=== PATIENT | female | born 1930 | race Caucasian/White ===

== ENCOUNTER 2016-12-31 14:03 | Inpatient (IN) | payer MEDICARE, OTHER ==
[~2016-12-31] VITALS: Ht 160 cm; Wt 53.5 kg
[~2016-12-31 14:03] MED LIST: AMITRIPTYLINE H50 MG PO; AUGMENTIN250 MG/5 M PO; CEPHALEXIN500 MG PO; CIPRO250 MG PO; CLONIDINE HCL0.1 MG PO; DILTIAZEM 24HR240 M1 PO; DILTIAZEM 24HR300 MG PO; DILTIAZEM ER180 MG PO; DILTIAZEM ER240 M2 PO; DILTIAZEM ER240 MG PO; DILTIAZEM HCL120 MG PO; ELIQUIS2.5 MG PO; FLUCONAZOLE100 MG PO; FUROSEMIDE20 MG PO; HYDROCHLOROTH12.5 M1 PO; HYDROCODON-ACE1 EA11 PO; HYDROCODONE-ACE15 M2 PO; INDERAL LA120 MG PO; LASIX20 MG PO; LEVAQUIN750 MG PO; LEVOTHYROXINE100 MCG PO; LEVOXYL112 MCG PO; LISINOPRIL20 MG PO; MACROBID 100 M100 MG PO; MIRALAX17 GM PO; NEURONTIN100 MG PO; NORCO 5-325 TA1 EACH PO; NUCYNTA ER50 MG PO; OMEPRAZOLE20 MG PO; OXYCODONE HCL20 M1 PO; OXYCODONE HCL5 MG PO; PERCOCET 5-3251 EACH PO; POTASSIUM CHLO10 MEQ PO; PROMETHAZINE12.5 M1 PO; PROPRANOLOL HC120 MG PO; PROPRANOLOL HCL20 MG PO; SENNA8.6 MG PO; VITAMIN D32000 UNIT PO; XARELTO10 MG PO; XARELTO20 MG PO
[2016-12-31] MEDS ORDERED: SERTRALINE HCL50 MG PO (14:28)
[2016-12-31] MEDS ORDERED: CARTIA XT240 MG PO (14:28)
--- NOTE | 2016-12-31 16:47 | NUR ---
PT TO FLOOR AT 1630. PT DROWSY AND STATES SHE HAS BEEN MOST OF THE DAY, WHICH IS NOT NORMAL FOR HER. GIVEN OXYCODONE AT THE FACILITY FOR HER CHRONIC PAIN. STATES SHE HURTS ALL OVER MOST OF THE TIME, BUT DENIES RIGHT NOW.
--- NOTE | 2016-12-31 17:18 | NUR ---
PT ED ADMIT THIS AFTERNOON. PT DROWSY ALL DAY AFTER OXYCODONE AT FACILITY. PRIOR RIGHT WRIST FRACTURE, BE CAREFUL. DENIES PAIN.
--- NOTE | 2016-12-31 19:37 | NUR ---
RECEIVED REPORT FROM DAY SHIFT RN. PATIENT IS RESTING IN BED WITH EYES CLOSED. PATIENT IS EASY TO AROUSE. PATIENT DENIES ANY PAIN AT THIS TIME. PATIENT DENIES ANY NEEDS. CALL LIGHT IS WITHIN REACH AND BED ALARM IS ON FOR SAFETY.
--- NOTE | 2016-12-31 21:55 | NUR ---
PATIENT ASSESMENT COMPLETED. PATIENT DENIES ANY PAIN AT THIS TIME. PATIENTS EVENING GIVEN MEDICATIONS GIVEN PER ORDER. PATIENTS ATTEND CHANGED AND MARIANNA CARE PERFORMED. PATIENT TOLERATED ACTIVITY WELL. PATIENT DENIES ANY FURTHER NEEDS. BED ALARM IS ON AND CALL LIGHT IS WITHIN REACH.
--- NOTE | 2016-12-31 22:59 | NUR ---
PATIENT GIVEN PRN TYLENOL FOR 5/10 PAIN THAT IS GENERALIZED. PATIENT DENIES ANY FURTHER NEEDS AT THIS TIME. CALL LIGHT IS WITHIN REACH AND BED ALARM IS ON.
--- NOTE | 2017-01-01 01:37 | NUR ---
PATIENTS VITALS TAKEN AND RECORDED. PATIENT DENIES ANY PAIN AT THIS TIME. PATIENTS ATTEND CHANGED. PATIENT DENIES ANY NEEDS AT THIS TIME. CALL LIGHT IS WITHIN REACH.
--- NOTE | 2017-01-01 03:24 | NUR ---
PATIENT IS RESTING IN BED WITH EYES CLOSED. PATIENTS BREATHING IS EVEN AND UNLABORED. PATIENT REMAINS ON TELE #1, NSR, HR 66. CALL LIGHT IS WITHIN REACH.
--- NOTE | 2017-01-01 03:32 | NUR ---
PATIENT IS RESTING IN BED WITH EYES CLSOED. BREATHING IS EVEN ADN UNLABORED. CALL LIGHT IS WITHIN REACH AND BED ALARM IS ON.
--- NOTE | 2017-01-01 04:46 | NUR ---
PATIENT RESTED WELL THROUGHOUT THE SHIFT. PATIENT RECEIVED PRN TYLENOL FOR A HEADACHE. PATIENT IS AAO BUT FORGETFUL AT TIMES. PATIENT IS ON A CLEAR DIET BUT HAS A DECREASE IN APPETITE. PATIENT STATES "I AM JUST NOT HUNGRY" PATIJOSEPHN IS WHEELCHAIR BOUND AT BASELINE. PATIENT IS INCONTINENT. PATIENT HAS A RIGHT WRIST FRACTURE. PATIENTS SON WILL BE BRINGING IN BRACE TODAY FOR PATIENTS WRIST. PATIENTS BED ALARM HAS REMAINED ON FOR PATIENT SAFETY.
--- NOTE | 2017-01-01 05:40 | NUR ---
PATIENTS VITALS TAKEN AND RECORDED. PATIENT DENIES ANY PAIN AT THIS TIME. PATIENTS ATTEND CHANGED AND MARIANNA CARE PERFORMED. PATIENT GIVEN A WARM BLANKET. PATIENT DENIES ANY NEEDS. WARM BLANKET GIVEN. BED ALARM ON AND CALL LIGHT IS WITHIN REACH.
--- NOTE | 2017-01-01 06:33 | NUR ---
PATIENTS ATTEND CHANGED MARIANNA CARE PERFORMED. PRN TYELNOL GIVEN FOR 5/10 GENERALIZED PAIN. PATIENT DENIES ANY FURTHER NEEDS. BED ALARM IS ON AND CALL LIGHT IN REACH.
--- NOTE | 2017-01-01 07:15 | NUR ---
REPORT RECIEVED FROM ARCADIO VEGA. PT AWAKE AND STATES SHE SLEPT OK LAST NIGHT. STATED THAT SHE FELT OK. TOOK TYLENOL FOR HEADACHE X1.
--- NOTE | 2017-01-01 07:47 | NUR ---
ADMINISTERED SCHED. MEDS. PT NOW STATES SHE IS IN HORRIBLE ALL OVER PAIN. STATES SHE NORMALLY TAKES OXYCODONE AT HOME FOR CHRONIC PAIN. WILL TALK TO
--- NOTE | 2017-01-01 08:00 | NUR ---
gave patient full bed bath. lotion applyed. depends changed with héctor care done. Patient turned onto left side. oral care done. patient sitting up in bed with breakfast tray in front of her. patient has no other needs at this time. call button in reach.
--- NOTE | 2017-01-01 09:18 | NUR ---
TALKED TO DR. CH REGARDING NEED FOR STOOL SOFTENERS. SHE ORDERED COLACE. WILL ADMINISTER WHEN VERIFIED.
--- NOTE | 2017-01-01 10:22 | NUR ---
PT REPORTS FEELING MUCH BETTER AFTER PAIN MEDS KICKED IN. NOW AWAKE AND TALKATIVE. DENIES CONCERNS. ADMINSTERED COLACE. PT ABLE TO SWALLOW WO DIFF.
[2017-01-01] MEDS ORDERED: ZOFRAN4 MG PO (10:23)
--- NOTE | 2017-01-01 10:23 | NUR ---
MED REC COMPLETE-PER PATIENT
--- NOTE | 2017-01-01 10:38 | NUR ---
CHANGED PATIENTS DEPENDS. TURNED PATIENT TO RIGHT SIDE. CALL BUTTON IN REACH. NO OTHER NEEDS AT THIS TIME.
--- NOTE | 2017-01-01 11:32 | NUR ---
PT RESTING IN BED.SHE IS AN 86 YR OLD FEMALE THAT IS VERY ARTICULATE AND POLITE. SHE STATED THAT SHE SLEPT WELL LAST NIGHT, BUT STILL ISN'T FEELING MUCH BETTER. DECLINED PRAYER, STATED "I AM VERY PRIVATE ABOUT MY PRAYING". I EXTENDED A BLESSING AND SHE THANKED ME. WILL CONTINUE TO FOLLOW
--- NOTE | 2017-01-01 12:20 | NUR ---
CHANGED IV TO OTHER ARM AND IN THE FOREARM, NOT THE AC. PT TOLERATED WELL AND WAS HAPPY TO NOT HAVE IT BEEPING AT HER CONTINUALLY. SON IN ROOM VISITING. REPORTS PAIN LOW.
--- NOTE | 2017-01-01 14:20 | NUR ---
PATIENT LAYING IN BED WATCHING TV. REQUESTED A MILK SHAKE. NO OTHER NEEDS AT THIS TIME.
--- NOTE | 2017-01-01 14:20 | NUR ---
PT HAD EXTREMELY LARGE HARD FORMED STOOL IN BEDPAN. STATES SHE FEELS MUCH BETTER. DENIES FURTHER CONCERNS.
--- NOTE | 2017-01-01 14:36 | NUR ---
PT CALLED FOR PAIN MEDICATION. RATES IT 01/23
--- NOTE | 2017-01-01 15:38 | NUR ---
patient depends dry. turned her to the left side with feet floating. bed down alarm on. call button in reach. no other needs at this time.
--- NOTE | 2017-01-01 17:27 | NUR ---
PT HAD A BETTER DAY. HOME REGIMN OF OXY STARTED. HAD VERY LARGE BM AFTER COLACE. CHANGED DEPENDS SEVERAL TIMES. IV CHANGED TO LEFT WRIST, PER REQUEST.
--- NOTE | 2017-01-01 17:58 | NUR ---
PT ATE A SMALL AMT OF DINNER AND MOST OF HIS ENSURE SHAKE. STATES SHE DOES NOT HAVE AN APPETITE LATELY. REPORTS PAIN IS MINIMAL RIGHT NOW.
--- NOTE | 2017-01-01 18:17 | NUR ---
CHANGED PATIENTS ATTENDS. SKIN CARE DONE. FRESH ICE WATER GIVEN. PATIENT RESTING IN BED WITH EYES CLOSED. CALL BUTTON IN REACH. BED ALARM ON.
--- NOTE | 2017-01-01 19:53 | NUR ---
RECEIVED REPORT FROM DAY SHIFT RN. PATIENT IS RESTING IN BED WATCHING TV. PATIENT IS REQUESTING PAIN MEDICATION WITH HER EVENING MEDICATIONS. COOPER ALARM IS ON FOR SAFETY AND CALL LIGHT IS WITHNI REACH.
--- NOTE | 2017-01-01 21:38 | NUR ---
PATIENT GIVEN PRN PAIN MEDICATION FOR 6/10 PAIN IN HER BACK. PATIENT ALSO GIVEN A WARM PACK FOR HER BACK. PATIENTS ATTEND CHANGED AN [facility] CARE PERFOMED. PATIENT REPOSTIIONED IN BED. PATIENTS WATER REFILLED. PATIENT DENIES ANY FURTHER NEEDS AT THIS TIME. PATIENT IS AAOX3, BUT IS FORGETFUL AT TIMES. PATIENTS BED ALARM IS ON FOR SAFETY. CALL LIGHT IS WITHIN REACH.
--- NOTE | 2017-01-01 23:39 | NUR ---
PATIENT COMPLAINS OF DISCOMFORT. PATIENT REPOSTIONED AND GIVEN A WARM BLANKET. PATIENT GIVEN PRN PAIN MEDICATION FOR 7/10 GENERALIZED PAIN. PATIENT DENIES ANY FURTHER NEEDS AT THIS TIME. CALL LIGHT IS WITHIN REACH.
--- NOTE | 2017-01-02 02:09 | NUR ---
PATIENTS ATTEND CHANGED AND MARIANNA CARE PERFOMRED. PATIENT IS REQUESTING PAIN MEDICATION. EDUCATED PATIENT THAT PAIN MEDICATION WAS NOT AVAILABLE UNTIL 0300. PATIENT IS REQUESTING THAT PAIN MEDICATION BE BROUGHT IN AT THIS TIME. PATIENT REPOSITIONED IN BED. PATIENT DENIES ANY FURTHER NEEDS. BED ALARM IS ON AND CALL LIGHT IN REACH.
--- NOTE | 2017-01-02 03:14 | NUR ---
PATIENT GIVEN PRN PAIN MEDICATION PER ORDER. PATIENT COMPLAINS IF 7/10 PAIN. PATIENT STATES "I JUST HURT ALL OVER" PATIENT DENIES ANY FURTHER NEEDS. CALL LIGHT IN REACH.
--- NOTE | 2017-01-02 04:44 | NUR ---
PATIENT IS RESTING IN BED WITH EYES CLOSED, RR 17
--- NOTE | 2017-01-02 04:52 | NUR ---
PATIENT RESTED ON AND OFF THROUGHOUT THE SHIFT. PATIENTIS ON A REG DIET AND TOLERATING INTAKE WELL. PATIENT RECEIVED PRN PAIN MEDICATION X3. PATIENT IS WHEELCHAIR BOUND AT BASELINE. PATIENT IS INCONTINENT, ATTEND IN PLACE. PATIENT IS AAOX3, BUT IS FORGETFUL AT TIMES. PATIENTS BED ALARM IS ON FOR SAFETY. PATIENT USES CALL LIGHT APPROPRIATELY. PATIENT DOES NOT CURRENTLY HAVE BOTTOM DENTURES THEREFORE A SOFT DIET IS REQUESTED BY PATIENT. PATIENT WEARS A WRIST BRACE ON HER RIGHT WRIST, BRACE IS NOT CURRENTLY WITH PATIENT.
--- NOTE | 2017-01-02 06:07 | NUR ---
PATIENTS VITALS TAKEN AND RECORDED. PATIENTS ATTEND CHANGED AND MARIANNA CARE PERFORMED. PATIENT IS REQUESTING PAIN MEDICATION. EDUCATED PATIENT THAT PAIN MEDICATION IS NOT AVAILABLE. PATIENT IS REQUESTING THAT PAIN MEDICATION BE BROUGHT IN WHEN AVAILABLE. PATIENT DENIES ANY FURTHER NEEDS. CALL LIGHT IS WITHIN REACH.
--- NOTE | 2017-01-02 06:49 | NUR ---
PATIENT GIVEN PRN PAIN MEDICATION PER ORDER. FOR 7/10 BACK PAIN. PATIENT REPOSITIONED. PATIENT DENIES ANY FURTHER NEEDS. CALL LIGHT IS WITHIN REACH.
[2017-01-02] MEDS ORDERED: CEPHALEXIN250 MG PO (09:31)
--- NOTE | 2017-01-02 09:33 | NUR ---
PT AWAKE AND PARTICIPATORY AT SHIFT CHANGE. REFUSES UP TO THE CHAIR STATING SHE WOULD BE MORE COMFORTABLE IN BED. PT TOLERATES A SMALL AMOUNT OF HER BREAKFAST REFUSING OTHER CHOICES OFFERED. PT AGREES THE PAIN MEDS HAVE BEEN EFFECTIVE " THEY CAN BE" REFUSES OTHER NEEDS AT THIS TIME. CALL LIGHT IN HAND
--- NOTE | 2017-01-02 10:33 | NUR ---
DR CH IN TO SEE PT DC DISCUSSSED. PT DENIES QUESTIONS OR CONCERNS.
== END 2017-01-02 10:45 | disposition home or self-care (01) | DRG 689 ==
LOC: ED 14:03 → MS 15:54
PROVIDERS: ADMIT Internal Medicine
DX: N39.0 Urinary tract infection, site not specified (principal); G93.41 Metabolic encephalopathy; R65.10 Systemic inflammatory response syndrome (SIRS) of non-infectious origin without acute organ dysfunction; I48.1 Persistent atrial fibrillation; M19.90 Unspecified osteoarthritis, unspecified site; J44.9 Chronic obstructive pulmonary disease, unspecified; E03.9 Hypothyroidism, unspecified; I11.0 Hypertensive heart disease with heart failure; I50.9 Heart failure, unspecified; F17.210 Nicotine dependence, cigarettes, uncomplicated
CPT/HCPCS: 36415; 71010; 80048; 80053; 81001; 83605; 83735; 85025; 87040; 87088; J0696; J3475; J3480; J7030; J7042; J7060

== ENCOUNTER 2017-01-25 15:21 | Emergency (ER) | payer MEDICARE, OTHER ==
[~2017-01-25] VITALS: Ht 160 cm; Wt 53.5 kg
[~2017-01-25 15:21] MED LIST changes: +CARTIA XT240 MG PO; +CEPHALEXIN250 MG PO; +SERTRALINE HCL50 MG PO; +ZOFRAN4 MG PO
--- NOTE | 2017-01-25 17:13 | EKG ---
[facility] [address] [place] [address] Signed Normal sinus rhythm Normal ECG When compared with ECG of 08-APR-2016 17:10, No significant change was found Confirmed by HERNANDO CH MD ([id number]) on 01/25/2017 5:13:35 PM Electronically Signed By: HERNANDO CH MD 01/25/17 1713 PATIENT NAME: MATEOYOELOLIVER Electrocardiogram DATE OF : [birth year] PHYSICIAN: HERNANDO CH MD REPORT #: [id number] REPORT IS CONFIDENTIAL AND NOT TO BE RELEASED WITHOUT AUTHORIZATION
[2017-01-25] MEDS ORDERED: AZITHROMYCIN250 MG PO (18:35)
== END 2017-01-25 19:12 | disposition home or self-care (01) ==
LOC: ED 15:21
DX: J44.9 Chronic obstructive pulmonary disease, unspecified (principal); R53.1 Weakness; I11.0 Hypertensive heart disease with heart failure; I50.9 Heart failure, unspecified; I48.91 Unspecified atrial fibrillation; E03.9 Hypothyroidism, unspecified; F17.200 Nicotine dependence, unspecified, uncomplicated; Z87.442 Personal history of urinary calculi; Z90.49 Acquired absence of other specified parts of digestive tract; Z90.710 Acquired absence of both cervix and uterus; Z79.899 Other long term (current) drug therapy; Z79.891 Long term (current) use of opiate analgesic
CPT/HCPCS: 71010; 80053; 81001; 84484; 85025; 93005; 93010; 99284

== ENCOUNTER 2017-08-25 02:42 | Emergency (ER) | payer MEDICARE, OTHER ==
[~2017-08-25] VITALS: Ht 160 cm; Wt 53.5 kg
[~2017-08-25 02:42] MED LIST changes: +AZITHROMYCIN250 MG PO; +OXYCODONE HCL10 MG PO; +ZOFRAN ODT4 MG PO; -ZOFRAN4 MG PO
[2017-08-25] MEDS ORDERED: OMEPRAZOLE20 MG PO (02:53)
[2017-08-25] MEDS ORDERED: ZOFRAN ODT4 MG PO (05:17)
== END 2017-08-25 05:40 | disposition home or self-care (01) ==
LOC: ED 02:42
DX: K29.00 Acute gastritis without bleeding (principal); J44.9 Chronic obstructive pulmonary disease, unspecified; I11.0 Hypertensive heart disease with heart failure; I50.9 Heart failure, unspecified; I48.91 Unspecified atrial fibrillation; E03.9 Hypothyroidism, unspecified; F17.200 Nicotine dependence, unspecified, uncomplicated; Z79.899 Other long term (current) drug therapy
CPT/HCPCS: 74176; 80053; 81001; 83690; 84484; 85025; 87077; 87088; 87181; 87184; 87186; 96374; 99284; J2405; J7040

== ENCOUNTER 2017-11-10 16:22 | Inpatient (IN) | payer MEDICARE, OTHER ==
[~2017-11-10] VITALS: Ht 160 cm; Wt 46.5 kg
[2017-11-10] MEDS ORDERED: LEVOTHYROXINE88 MCG PO (16:45)
[2017-11-10] MEDS ORDERED: TROSPIUM CHLORI60 MG PO (16:46)
--- NOTE | 2017-11-10 19:29 | NUR ---
PT ARRIVED VIA STRETCHER FROM THE ED, SHE IS CONFUSED PUT KNOWS WHERE SHE IS AND HER NAME. PT STATES SHE HAS PAIN IN HER BACK BUT CANNOT GIVE IT A NUMBER. SHE IS DROWSY BUT ARROUSABLE. HER SON AND ANOTHER FAMILY MEMBER ARE WITH HER AT THIS TIME. FRESH WATER AT BEDSIDE AND CHAPSTICK APPLIED.
--- NOTE | 2017-11-10 20:30 | NUR ---
CALLED DR BLAKE ABOUT PT'S BP OF 205/89. HE SAID GO AHEAD AND GIVE THE BOULS OF FLUID ORDERED AND THE ZESTIRIL AND RECHECK IN AN HOUR.
--- NOTE | 2017-11-10 20:58 | NUR ---
ADMINISTERED LISINOPRIL IN APPLESAUCE, PT STATES "JUST LET ME " AND "I CANNOT SWALLOW" SHE WAS ABLE TO TAKE THE LISINOPRIL BUT DENIES THE TYLENOL.
--- NOTE | 2017-11-10 21:30 | NUR ---
BLANTON CATHETER PLACED PER MD ORDER. IMMEDIATE RETURN OF 500 ML CLOUDY YELLOW URINE. NO ODOR NOTED. PT REPEATING, "LET ME ", "I'M DYING". REASSURANCE PROVIDED. PT TOLERATED BLANTON CATH PLACEMENT WELL. PT REPOSITIONED IN BED. DENIES OTHER NEEDS AT THIS TIME. CALL LIGHT WITHIN REACH, ROOM WITHIN VIEW OF NURSES STATION.
--- NOTE | 2017-11-10 22:00 | NUR ---
SPOKE WITH DR BLAKE ABOUT PT'S BP OF 209/78, HE WILL PUT IN NEW ORDERS.
--- NOTE | 2017-11-10 23:35 | NUR ---
PT IS RESTING WITH EYES CLOSED, RESPIRATIONS ARE EVEN AND NONLABORED. CALL LIGHT IS WITHIN REACH.
--- NOTE | 2017-11-11 01:11 | NUR ---
PT IS RESTING WITH EYES CLOSED, RESPIRATIONS ARE EVEN AND NONLABORED. CALL LIGHT IS WITHIN REACH.
--- NOTE | 2017-11-11 02:23 | NUR ---
PT IS AWAKE IN BED, WHEN ASKED HOW SHE IS DOING SHE STATES "I AM " WE REPOSITIONED HER IN BED AND "SHE SAID DON'T BOTHER I AM ". YET SHE CAN STATE HER NAME AND 'S NAME.
--- NOTE | 2017-11-11 02:47 | NUR ---
ARCADIO HATHAWAY AND I REPOSITIONED THE PATIENT LYING ON HER LEFT SIDE.
--- NOTE | 2017-11-11 02:47 | NUR ---
NOTIFIED DR BLAKE OF PT'S BP 194/81 HE SAID TO INCREASE PT'S LABETALOL FROM 10MG TO 20 MG Q6H. WILL CHANGE THE ORDER.
--- NOTE | 2017-11-11 03:20 | NUR ---
PT IS RESTING WITH EYES CLOSED, RESPIRTATIONS ARE EVEN AND NONLABORED. CALL LIGHT IS WITHIN REACH.
--- NOTE | 2017-11-11 05:15 | NUR ---
PT IS RESTING WITH EYES CLOSED, RESPIRATIONS ARE EVEN AND NONLABORED. CALL LIGHT IS WITHIN REACH.
--- NOTE | 2017-11-11 05:37 | NUR ---
PT IS ORIENTED TO SELF AND LOCATION HOWEVER SHE CANNOT STATE THE DATE AND SAYS ODD THINGS AT TIMES. SHE SLEPT MOST OF THE NIGHT. HER BP WAS HIGH AND LABETALOL WAS ADDED BY DR BLAKE AT 10MG. AFTER IT REMAINED TERRELL THE DOSE WAS INCREASED TO 20MG. PT STATES SHE HAS A DIFFICULT TIME SWALLOWING, ORDERED ST EVAL. PT HAD A SMALL AMOUNT OF APPLESAUCE LAST NIGHT, AND TOOK ZESTIRIL CRUSHED IN THE APPLESAUCE. SHE USES A WHEELCHAIR AND LIVES AT [facility]. BLANTON CATH WAS PLACED FOR STRICT I&OS.
--- NOTE | 2017-11-11 06:25 | NUR ---
IN ROOM TO ADMINISTER MORNING MEDICATIONS. PT STATES HER PAIN IS 10/10 IN HER FEET. HAD TO CRUSH HER TYLENOL AND THYROID MEDICINE AND PUT IN APPLESAUCE. SHE DID NOT LIKE THE FLAVOR AND ALMOST VOMITED. SHE DECLINED TAKING THE PROTONIX AT THIS TIME. SHE IS A&O X3 THIS MORNING BUT STATES SHE FEELS CONFUSED. PT DENIES FURTHER NEEDS AT THIS TIME. FRESH WATER IS AT BEDSIDE.
--- NOTE | 2017-11-11 08:38 | NUR ---
SPEECH THERAPY WORKING WITH PATIENT NOW. OCCUPATIONAL THERAPIST IN TO SEE PATIENT WELL. ALLOWING THERAPY STAFF TO WORK WITH PATIENT BEFORE ADMINISTERING MORNING MEDICATIONS.
--- NOTE | 2017-11-11 08:40 | NUR ---
SPEECH THERAPY SUGGESTS A GROUND DIET AND CRUSHING PILLS WITH FOOD TO ADMINISTER.
--- NOTE | 2017-11-11 09:06 | NUR ---
SUSAN ERVIN ATTEMPTING NEW IV START. FIELD START IN PLACE NOW. SON ARRIVED TO ROOM. PATIENT REPEATING STATEMENTS THAT SHE IS GOING TO . REORIENTED PATIENT FREQUENTLY. TOOK CRUSHED MEDICATIONS WITH APPLESAUCE.
--- NOTE | 2017-11-11 09:47 | NUR ---
PATIENT TRANSFERRED TO CHAIR 2PA WITH WALKER AND GAIT BELT. IN RECLINER NOW.
--- NOTE | 2017-11-11 10:24 | NUR ---
NOTIFIED OF SPEECH THERAPY EVALUATION, GROUND FOODS AND CRUSHED MEDICATIONS.
--- NOTE | 2017-11-11 11:59 | NUR ---
ADMINISTERED MEDICATION WITH APPLESAUCE, PATIENT ABLE TO SWALLOW PILLS WELL. PATIENT REQUESTED SALT PACKET FOR LUNCH, DR. HAYDEN PONCE. PROVIDED PATIENT SALT. IV FLUIDS DECREASED TO 65ML/HR.
--- NOTE | 2017-11-11 14:15 | NUR ---
NAILER OPERATOR FROM [facility] VISITING WITH PATIENT NOW. PATIENT SITTING UP IN RECLINER. CATHETER REMOVED AT 1330. 50ML URINE EMPTIED FROM CATHETER BAG. PATIENT TOLERATED REMOVAL WELL. NOTIFIED HOSPITALIST OF LOW URINE OUTPUT.
--- NOTE | 2017-11-11 16:06 | EKG ---
[facility] [address] [place] [address] Signed Normal sinus rhythm Possible Anterior infarct , age undetermined Abnormal ECG When compared with ECG of 25-JAN-2017 15:47, Non-specific change in ST segment in Anterior leads T wave inversion now evident in Anterior leads QT has lengthened Confirmed by AMY BLAKE MD ([id number]) on 11/11/2017 4:06:38 PM Electronically Signed By: AMY BLAKE MD 11/11/17 1606 PATIENT NAME: PRIYAOLIVERDEMARCUS GOMEZ Electrocardiogram DATE OF : [birth year] PHYSICIAN: AMY BLAKE MD REPORT #: [id number] REPORT IS CONFIDENTIAL AND NOT TO BE RELEASED WITHOUT AUTHORIZATION
--- NOTE | 2017-11-11 16:23 | NUR ---
[facility]. SITTING UP IN BED NOW. DIFFICULTY SWALLOWING SMALL CHUNKS OF CRUSHED MEDS. ATTEMPTING TO SWALLOW WITH MULTIPLE BITES OF APPLESAUCE AND ENSURE CLEAR DRINK.
[2017-11-11] MEDS ORDERED: SENNA8.6 MG PO (17:55)
[2017-11-11] MEDS ORDERED: TRIPLE ANTIBIO1 EACH TOP (17:57)
[2017-11-11] MEDS ORDERED: HIBICLENS118 ML TOP (17:59)
[2017-11-11] MEDS ORDERED: TYLENOL325 MG PO (18:01)
[2017-11-11] MEDS ORDERED: CLONIDINE HCL0.1 MG PO ×2 (18:02→18:03)
[2017-11-11] MEDS ORDERED: NARCAN4 MG NAS (18:05)
--- NOTE | 2017-11-11 18:07 | NUR ---
MED REC COMPLETE
--- NOTE | 2017-11-11 18:19 | NUR ---
2PA UP TO BSC. PATIENT HAD INCONTINENT VOID IN ATTENDS. ATTENDS CHANGED AND BACK TO BED NOW. ARRANGED FOR COMFORT. CALL LIGHT AND BELONGINGS WITHIN REACH.
--- NOTE | 2017-11-11 18:20 | NUR ---
BLANTON CATHETER REMOVED TODAY. INCONTINENT VOID IN ATTENDS AFTER REMOVED. NEW IV IN RFA. PT/OT/ST SAW HER TODAY. CARDIAC GROUND DIET. D5LR @ 75. LABETOLOL BID FOR BP. UNKNOWN LAST BM. CONFUSED AT TIMES. IMPROVING THROUGHOUT DAY. CRUSH PILLS IN APPLESAUCE. LEFT FACIAL DROOP. OXYCODONEAT 1800 FOR LEG PAIN. 2PA WITH GAIT BELT TO TRANSFER TO CHAIR TO [facility].
--- NOTE | 2017-11-11 19:04 | NUR ---
IN ROOM FOR REPORT, PT IS AWAKE IN BED, SHE DENIES NEEDS AT THIS TIME. CALL LIGHT IS WITHIN REACH.
--- NOTE | 2017-11-11 20:15 | NUR ---
ROUNDED CHARGE. PATIENT IS RESTING IN BED WATCHING TV. PATIENT DENIES ANY COMMENTS, QUESTIONS, OR CONCERNS. NO NEEDS NOTED. CALL LIGHT IN REACH.
--- NOTE | 2017-11-11 20:56 | NUR ---
IN ROOM TO ADMINISTER EVENING MEDICATIONS AND ASSESS PT. SHE IS ALERT AND ORIENTED X3 AND BUT SHE STATES SHE STILL FEELS A LITTLE CONFUSED. SHE ALSO STATES SHE DID NOT HAVE INCONTINENCE PRIOR TO ADMISSION. SHE TOOK HER EVENING PILLS CRUSHED IN CHOCOLATE PUDDING WITHOUT ANY PROBLEMS. TYLENOL WAS ADMINISTERED FOR A HEADACHE, PT DENIES FURTHER SYMPTOMS JUST BACK PAIN. CALL LIGHT IS WITHIN REACH AND PT DENIES NEEDS AT THIS TIME.
--- NOTE | 2017-11-11 21:50 | NUR ---
CALLED DR BLAKE TO NOTIFY HIM THAT PT'S BP WAS 187/81 AND EVENING BP MEDS WERE GIVEN ALONG WITH TYLENOL FOR 8/10 HEADACHE AND THAT BP WAS RECHECKED AT 136/63 AND PT RATES HEADACHE AT A 6/10. HE SAID CONTINIUE TO MONITOR FOR ANY OTHER SYMPTOMS. NO NEW ORDERS GIVEN.
--- NOTE | 2017-11-11 23:18 | NUR ---
CHANGED PT'S ATTENDS AND REPOSITIONED HER, SHE WILL TRY TO GO BACK TO SLEEP. CALL LIGHT IS WITHIN REACH.
--- NOTE | 2017-11-12 00:43 | NUR ---
PT IS RESTING WITH EYES CLOSED, RESPIRATIONS ARE EVEN AND NONLABORED. CALL LIGHT IS WITHIN REACH.
--- NOTE | 2017-11-12 02:39 | NUR ---
ADMINISTERED OXYCODONE FOR PAIN IN LEGS 01/23. SHE STATES HER HEADACHE IS ALMOST GONE. PT DENIES FURTHER NEEDS. CALL LIGHT IS WITHIN REACH.
--- NOTE | 2017-11-12 02:40 | NUR ---
CHANGED PT'S ATTENDS AND REPOSTIONED HER TO HELP WITH LEG PAIN. SHE DENIES FURTHER NEEDS.
--- NOTE | 2017-11-12 04:41 | NUR ---
PT IS RESTING WITH EYES CLOSED, RESPIRATIONS ARE EVEN AND NONLABORED. CALL LIGHT IS WITHIN REACH.
--- NOTE | 2017-11-12 04:43 | NUR ---
PT DID NOT SLEEP VERY WELL DURING THE NIGHT. SHE HAD SEVERAL INCONTINENT VOIDS IN HER ATTENDS AND STATES SHE CANNOT TELL WHEN SHE NEEDS TO GO. SHE THINKS HER LAST BM WAS THE BUT CANNOT RECALL IF SHE TAKES ANYTHING AT HOME TO HELP HER GO. PT PREFERS HER PILLS CRUSHED AND ADDED TO CHOCOLATE PUDDING. PT REPORTED A HEADACHE LAST NIGHT AT 8/10 BUT IT IMPROVED WITH TYLENOL. LAST DOSE OF OXYCODONE WAS ABOUT 0240. D5LR IS INFUSING AT 75.
--- NOTE | 2017-11-12 05:30 | NUR ---
CHANGED PT'S ATTENDS AND REPOSITIONED HER. SHE DENIES FURTHER NEEDS AT THIS TIME.
--- NOTE | 2017-11-12 06:32 | NUR ---
IN ROOM TO ADMINISTER MEDICATIONS. PT IS AWAKE IN BED, HELPED HER REPOSITION. SHE DENIES FURTHER NEEDS AT THIS TIME.
--- NOTE | 2017-11-12 07:59 | NUR ---
RN IN ROOM WITH PATIENT. PATIENT WASHED HANDS AND FACE WITH WARM WASH CLOTH, SHO WHIPPLE STATES SHE HELPED PATIENT CLEAN HER DENTURES. PATIENT WAITING FOR SWALLOW STUDY. PATIENT CALL LIGHT IN REACH. NO OTHER NEEDS AT THIS TIME.
--- NOTE | 2017-11-12 08:21 | NUR ---
A.M. MEDICATIONS CRUSHED AND ADMINISTERED WITH CHOCOLATE PUDDING, MIRALAX GIVEN WITH JUICE. SPEECH THERAPY IN WITH PATIENT FOR BREAKFAST, ASSESSING SWALLOWING CAPABILITIES. PATIENT DENIES NEEDS AT THIS TIME.
--- NOTE | 2017-11-12 08:30 | NUR ---
NURSE ASSESSMENT COMPLETED, PATIENT WITH SLOW TO RESPOND AT BASELINE, NON-GARBLED SPEECH, ANSWERING QUESTIONS APPROPRIATELY WITH CONFUSION AT TIMES. BREATHING EQUAL AND NON-LABORED, CIRCULATION WITHIN NORMAL LIMITS, BILATERAL RADIAL PULSES PALPABLE, GOOD CAPILLARY REFILL, PATIENT WITH REPORTED NUMBNESS AND TINGLY IN BILATERAL LEGS, DESCRIBED MOSTLY CHRONIC, DENIES PAIN. PATIENT WITH GENERALIZED WEAKNESS, PATIENT NORMALLY IN WHEELCHAIR. LUNG SOUNDS CLEAR AND DIMINISHED AT BASES. ABDOMEN SOFT, NON-TENDER. PATIENT WITH NOTED LEFT SIDE FACIAL DROOP, MILD. PATIENT SITTING UPRIGHT IN BED IN COMFORTABLE POSITION.
--- NOTE | 2017-11-12 08:31 | NUR ---
BRUSHED PTS DENTURES AND PUT SOME GLUE ON THEM FOR HER. SHE IS IN GOOD SPIRITS AND HAS SPEECH THERAPY IN THE ROOM WITH HER NOW. ALSO COMBED HER HAIR. CALL LIGHT IN REACH
--- NOTE | 2017-11-12 10:27 | NUR ---
PATIENT HAD LARGE INCONTINENCE. PATIENT SHOWED NO SIGNS OF REDNESS OR IRRITATION ON BOTTOM FROM INCONTINENCE, BARRIER WIPES USED ANYWAYS. PATIENT STATES SHE GOT DIZZY WHILE ROLLING FROM SIDE TO SIDE THIS MULTIPLE SPINDLE SCREW MACHINE OPERATOR CHANGED HER ATTENDS. RN NOTIFIED. PATIENT READJUSTED IN BED, CALL LIGHT IN REACH. NO OTHER NEEDS AT THIS TIME.
--- NOTE | 2017-11-12 11:00 | NUR ---
PATIENT'S SON AT PATIENT BEDSIDE, ALL QUESTIONS ANSWERED ABOUT NURSING CARE AND COURSE OF TREATMENT.
--- NOTE | 2017-11-12 11:24 | NUR ---
PATIENT WORKING WITH PHYSICAL THERAPY, ASSISTED PHYSICAL THERAPY WITH TWO PERSON TRANSFER OF PATIENT FROM BED TO CHAIR. PATIENT REQUIRING GAIT BELT AND FULL ASSIST WITH TRANSFER.
--- NOTE | 2017-11-12 12:54 | NUR ---
PATIENT SITTING UP IN BEDSIDE RECLINER, FAMILY IN ROOM. PATIENT CALL LIGHT IN REACH. NO OTHER NEEDS AT THIS TIME.
--- NOTE | 2017-11-12 13:36 | NUR ---
PATIENT UP TO SHOWER WITH EXECUTIVE CANDIDATE DEVELOPER- JENNIFER, PATIENT BACK IN BED AND DENIES PAIN OR DISCOMFORT AT THIS TIME.
--- NOTE | 2017-11-12 13:40 | NUR ---
ARCADIO DAVIS ONE PERSON MANUAL TRANSFERRED PATIENT INTO SHOWER CHAIR. THIS GLUE MIXER ASSISTED PATIENT WITH SKINCARE AND PERICARE, PATIENT STATED SHE HAD A WOUND ON HER RIGHT FOOT. THIS GLUE MIXER AVOIDED SCRUBBING WOUND AND NOTIFIED RN. GLUE MIXERJosefina WHIPPLE ASSISTED ONE PERSON MANUAL TRANSFER PATIENT BACK INTO BED. LINENS CHANGED. PATIENT DRESSED IN CLEAN GOWN AND CLEAN ATTENDS. RN ADDRESSED WOUND AND HOOKED UP IV. PATIENT CALL LIGHT IN REACH. NO OTHER NEEDS AT THIS TIME. RN IN ROOM.
--- NOTE | 2017-11-12 15:25 | NUR ---
PATIENT RESTING IN BED, FAMILY IN ROOM. PATIENT CALL LIGHT IN REACH. NO OTHER NEEDS AT THIS TIME.
--- NOTE | 2017-11-12 15:55 | NUR ---
OCCUPATIONAL THERAPY IN PATIENT ROOM WORKING WITH PATIENT.
--- NOTE | 2017-11-12 16:32 | NUR ---
PATIENT'S ATTENDS CHANGED, PATIENT GIVEN DE BISCADOYL, PATIENT REPOSITIONED IN BED, NEW WARM BLANKETS PROVIDED, PATIENT HAS NO FURTHER COMPLAINTS AT THIS TIME. PATIENT RESTING COMFORTABLY IN BED.
--- NOTE | 2017-11-12 17:11 | NUR ---
PATIENT REQUIRED FULL ASSIST, NON-WEIGHT BEARING TO TRANSFER FROM BED TO BEDSIDE COMMODE. PATIENT WITH LARGE FORMED STOOL. PATIENT REQUIRED FULL ASSIST FROM BEDSIDE COMMODE TO BED, PATIENT UNABLE TO BEAR WEIGHT DURING TRANSFER.
--- NOTE | 2017-11-12 17:13 | NUR ---
THIS CHOIR ACCOMPANIST AND RN YING ASSISTED PATIENT UP TO BEDSIDE COMMODE. PATIENT DID NOT TOLERATE TWO PERSON MANUAL TRANSFER VERY WELL, PATIENT IS NON-WEIGHT BEARING AND UNABLE TO MOVE HER LEGS TO HELP. PATIENT HAD LARGE FORMED STOOL. PATIENT BACK IN BED RESTING, CALL LIGHT IN REACH. PATIENT HAD NO INCONTINENCE WHEN CHECKED. NO OTHER NEEDS AT THIS TIME.
--- NOTE | 2017-11-12 17:48 | NUR ---
PATIENT REQUESTING A PAIN PILL FOR HEADACHE. RN NOTIFIED. PATIENT RESTING IN BED. CALL LIGHT IN REACH. NO OTHER NEEDS AT THIS TIME.
--- NOTE | 2017-11-12 18:34 | NUR ---
PATIENT IS ALERT WITH BASELINE CONFUSION AT TIMES, SLOW TO RESPOND AT TIMES. PATIENT HAS EVEN UNLABORED BREATHING, LUNG SOUNDS CLEAR AND DIMINISHED AT BASES, RA SATS OF 99%. PATIENT REQUIRED TWO PERSON LIFT TO TRANSFER FROM BED TO BEDSIDE COMMODE, PATIENT WEARING ATTENDS. PATIENT WITH NORMAL URINE OUTPUT TODAY. PATIENT ALSO WITH LARGE FORMED STOOL TODAY AT 1630 HOURS AFTER ADMINISTRATION OF [place]. PATIENT WITH DECREASED CALORIC INTAKE AND COMPLETED 25-50% OF GROUND/MOIST DIET TODAY. PATIENT REQUIRES MEDICATIONS CRUSHED AND IN CHOCOLATE PUDDING. PATIENT WITH CONTINUED INTRAVENOUS FLUIDS UNTIL LR D5 IS COMPLETED, THAN D/C FLUIDS PER NEW ORDERS. PATIENT WITH PRN TYLENOL NEEDED FOR PAIN IN LEGS. LAST ADMINISTERED DOSE AT 1600 HOURS. PATIENT WILL REQUIRE ADDITIONAL REHABILITATION WITH PLANS TO SWING BED TOMORROW.
--- NOTE | 2017-11-12 18:46 | NUR ---
THIS DIRECTOR PROCESS IMPROVEMENT ASSISTED TO CHANGE PATIENT'S ATTENDS AFTER INCONTINENCE. PERICARE PERFORMED, NO SIGNS OF REDNESS OR IRRITATION. PATIENT WINCES AND COMPLAINS OF PAIN WHEN ROLLING. PATIENT GIVEN WARM BLANKET FOR COMFORT. PATIENT REPOSITIONED ONTO RIGHT SIDE WITH PILLOW. CALL LIGHT IN REACH. NO OTHER NEEDS AT THIS TIME.
--- NOTE | 2017-11-12 20:09 | NUR ---
COOP WITH ASSESSMENT BP 176/76, DENIES CP OR NUMBNESS, ON ROOM AIR, NO C/O SOB. WATCHING TV
--- NOTE | 2017-11-12 20:47 | NUR ---
ROUNDED CHARGE. PATIENT IS RESTING IN BED. PATIENT DENIES ANY COMMENTS, QUESTIONS, OR CONCERNS. NO NEEDS NOTED. CALL LIGHT IN REACH.
--- NOTE | 2017-11-12 21:41 | NUR ---
HELPED SHO ALMEIDA CHANGE PTS ATTEND INCONTINENT WITH URINE. BEDSIDE TABLE AND CALL LIGHT WITHIN REACH.
--- NOTE | 2017-11-12 23:14 | NUR ---
RESTING, NO DISTRESS.
--- NOTE | 2017-11-12 23:55 | NUR ---
TURNED TO BACK, INCONTINENT OF URINE, ATTEND CHANGED, PROCEDURE EXPLAINED, COOPERATIVE, WARM WASH CLOTH TO FACE, DID OWN CARE
--- NOTE | 2017-11-13 00:56 | NUR ---
HELPED RN PEDRO WITH CHANGING PTS ATTEND AND REPOSITIONING HER IN BED. BEDSIDE TABLE ADN CALL LIGHT WITHIN REACH. PT NEEDS NOTHING MORE AT THIS TIME.
--- NOTE | 2017-11-13 01:36 | NUR ---
MEDICATED WITH OXYCODONE 10MG PO C/O LEG PAIN BILAT 01/23. TURNED. PT REASSURED SHE IS PREOCUPPIED WITH "AM I GOING TO TONIGHT", NOT VERY RECEPTIVE TO INFO
--- NOTE | 2017-11-13 04:36 | NUR ---
TURNED, INCONTINENT OF URINE. ATTENDS CHANGED, PROCEDURE EXPLAINED, COOPERATIVE,
--- NOTE | 2017-11-13 05:40 | NUR ---
PT CURRENTLY RESTING, EYES CLOSED, NO RESP DISTRESS. ON ROOM AIR. TURNED Q2H, INCONTINENT OF URINE SEVERAL TIMES THIS SHIFT, SKIN CARE DONE, ATTENDS CHANGED. PROCEDURE EXPLAINED, COOPERATIVE. WAS MEDICATED X1 WITH OXYCODONE 10MG PO C/O RESTLESS LEGS, MED EFFECTIVE. HEEL PROTECTORS IN PLACE, SL AT THIS TIME. NO C/O SOB OR PAIN. PT IS A 2 PERSON ASSIST DUE TO WEAKNESS. PT WAS REASSURED MULTIPLE TIMES THIS SHIFT DUE TO PTS PREOCUPATIONS WITH HER OWN . CONFUSED TO PLACE AND TIME. REORIENTED WITH EACH INTERACTION.
--- NOTE | 2017-11-13 06:12 | NUR ---
VITALS AND I&OS DONE AND CHARTED. GARBAGES EMPTIED. PT REPOSITIONED IN BED TO THE RIGHT SIDE WITH PILLOWS. PT NEEDS NOTHING ELSE AT THIS TIME. BEDSIDE TABLE AND CALL LIGHT WITHIN REACH.
--- NOTE | 2017-11-13 06:21 | NUR ---
Awake, watching tv, meds given with puding, tolerated well. watching TV, no c/o sob, cp or n/v. Toleratinv fluids well,
--- NOTE | 2017-11-13 07:05 | NUR ---
PT RESTING IN BED ALERT NO DISTRESS NOTED. NO REQUESTS AT THIS TIME. BEDSIDE REPORT FROM PEDRO ERVIN
--- NOTE | 2017-11-13 08:46 | NUR ---
Student nurse performed full head to toe assessment. Patient has no complaints of pain at this time. Patient is sitting up in bed after eating her breakfast and in good spirits.
--- NOTE | 2017-11-13 09:15 | NUR ---
PT REQUEST MORPHINE FOR SHORTNESS OF BREATH PHYSICAL THERAPY IN TO AMBULATE WITH HER. PT REQUEST SARAH BETH WITH PHYSICAL THERAPY TO COME BACK LATER TO ALLOW THE MEDICATION TO WORK.
--- NOTE | 2017-11-13 09:49 | NUR ---
Student nurse performed focused assessment on patient's urine function, skin integrity, musculoskeletal, neuro, cardiac function, and respiratory function. Patient complains of chronic pain due to a longstanding sore on her R foot. Patient has no other complaints of pain at this time. Vitals and I/O charted. Patient sitting in up in bed, watching TV. Patient states that she would like to take a shower this afternoon if she feels strong enough. Patient stated that she will call for assistance when she feels to void. Call light placed in reach.
--- NOTE | 2017-11-13 10:29 | NUR ---
PT UP AT THIS TIME AMBULATING IN HALLS WITH PHYSICAL THERAPY, TOLERATIN G ACTIVITY WELL, NO SHORTNESS OF BREATH NOTED, STEADY GAIT. OXYGEN ON 2L N.C.
== END 2017-11-13 11:20 | disposition swing bed (61) | DRG 871 ==
LOC: ED 16:22 → MS 19:19
PROVIDERS: ADMIT Internal Medicine
DX: A41.59 Other Gram-negative sepsis (principal); G93.41 Metabolic encephalopathy; N30.00 Acute cystitis without hematuria; I11.0 Hypertensive heart disease with heart failure; I50.9 Heart failure, unspecified; M62.81 Muscle weakness (generalized); R13.12 Dysphagia, oropharyngeal phase; J44.9 Chronic obstructive pulmonary disease, unspecified; E03.9 Hypothyroidism, unspecified; K21.9 Gastro-esophageal reflux disease without esophagitis; G89.4 Chronic pain syndrome; F39 Unspecified mood [affective] disorder; G62.9 Polyneuropathy, unspecified; M79.7 Fibromyalgia; I48.0 Paroxysmal atrial fibrillation; Z79.01 Long term (current) use of anticoagulants; Z79.899 Other long term (current) drug therapy; Z66 Do not resuscitate; Z79.891 Long term (current) use of opiate analgesic; Z91.81 History of falling; Z99.3 Dependence on wheelchair
CPT/HCPCS: 36415; 70450; 71045; 80053; 81001; 83605; 83735; 84484; 85025; 85610; 85730; 87040; 87077; 87088; 87186; 92526; 92610; 93005; 93010; 97110; 97162; 97165; 97530; J0696; J7030; J7120

== ENCOUNTER 2017-11-13 11:20 | Inpatient (IN) | payer MEDICARE, OTHER ==
[~2017-11-13 11:20] MED LIST changes: +HIBICLENS118 ML TOP; +LEVOTHYROXINE88 MCG PO; +NARCAN4 MG NAS; +TRIPLE ANTIBIO1 EACH TOP; +TROSPIUM CHLORI60 MG PO; +TYLENOL325 MG PO
--- NOTE | 2017-11-13 11:30 | NUR ---
MED REC COMPLETE
--- NOTE | 2017-11-13 11:50 | NUR ---
REPORT TO DELANEY ERVIN AT THIS TIME
--- NOTE | 2017-11-13 12:00 | NUR ---
PATIENT STATUS CHANGE TO SWING BED NOW
--- NOTE | 2017-11-13 12:15 | NUR ---
Student nurse performed focused assessment on patient. Family present at this time. Patient has no complaints of pain. She is sitting up in chair and eating lunch. Patient states that she will call for nurse when she needs to void or needs assistance. Call light and phone within reach.
--- NOTE | 2017-11-13 14:07 | NUR ---
Student nurse performed full head to toe patient assessment, along with vitals and I&O. Patient complained of a numb pain in the front of her legs but did not desire pain medication. Patient is sitting up in her chair at this time with visitors but wants to go back to bed after they leave.
--- NOTE | 2017-11-13 15:04 | NUR ---
OCCUPATIONAL THERAPIST IN ROOM WITH PATIENT. PATIENT REPORTS NO NAUSEA, OR PAIN. BREATHING EVEN/UNLABORED. NO ACUTE DISTRESS NOTED. RESTING IN THE CHAIR.
--- NOTE | 2017-11-13 16:02 | NUR ---
PATIENT RESTING IN THE CHAIR WATCHING TV. REPORTS NO PAIN AT THIS TIME. APPEARS IN NO ACUTE DISTRESS AT THIS TIME. CALL LIGHT IN REACH.
--- NOTE | 2017-11-13 17:31 | NUR ---
PATIENT SITTING IN THE CHAIR EATING DINNER AT THIS TIME. NO COMPLAINTS. CALL LIGHT IN REACH.
--- NOTE | 2017-11-13 18:41 | NUR ---
PATIENT IS SWING NOW. HAD DONE WELL TODAY, HAD OCCUPATIONAL THERAPY TODAY. 2 PERSONS TRANSFER TO PIVOT. GENERALIZED WEAKNESS. CHAIR BOUND APPETITE IMPROVED. IV SITE PATENT.
--- NOTE | 2017-11-13 20:00 | NUR ---
RECEIVED REPORT AT 1900, FOUND PT IN BED ON THE PHONE. PT SEEMED IN NO DISTRESS OF ANY KIND AT THAT TIME.
--- NOTE | 2017-11-13 20:47 | NUR ---
HELPED SHO ROLON TO GET PT TO THE BEDSIDE COMMODE AND BACK TO BED. VITALS AND I&OS DONE AND CHARTED. BEDSIDE TABLE AND CALL LIGHT WITHIN REACH.
--- NOTE | 2017-11-13 22:00 | NUR ---
V/S ARE WDL, SBP WAS TERRELL AT 172, SCHEDULED MEDS WERE GIVEN. PT DENIES PAIN. ALL LOBES ARE CLEAR. PT OVERALL IS WEAK. ABD SOUNDS ARE PRESENT. PT IS AAO. I HAVE NO NEW CONCERNS AT THIS TIME.
--- NOTE | 2017-11-14 00:01 | NUR ---
PT IS AWAKE IN BED. PAIN IS 0/10 AT THIS TIME. PT EARLIER COMPLAINED OF RIGHT KNEE PAIN. PRN TYLENOL WAS GIVEN AND A WARM PACK WAS APPLIED. PT HAS NO NEEDS AT THIS TIME.
--- NOTE | 2017-11-14 02:00 | NUR ---
PT IS SLEEPING AT THIS TIME.
--- NOTE | 2017-11-14 04:00 | NUR ---
PT IS SLEEPING.
--- NOTE | 2017-11-14 07:21 | NUR ---
RECIEVED BEDSIDE REPORT FROM ARCADIO HUTCHINSON WITH SN KARISHMA. PT AWAKE AND ALERT, SITTING IN CHAIR. PT CONCERNED ABOUT WHEELCHAIR, BUT ABLE TO BE REDIRECTED. RN AND DISCUSSED MEDS, SN WILL ADMINISTER MEDS.
--- NOTE | 2017-11-14 08:27 | NUR ---
Student nurse performed full head to toe patient assessment and administered 0800 medication. Patient is sitting in chair, eating breakfast and watching TV. Patient has no complaints of pain at this time. Patient is exhibiting signs of slight depression due to her current condition. Patient is otherwise in no distress. Bedside table and call light within reach.
--- NOTE | 2017-11-14 08:29 | NUR ---
PATIENT UP IN CHAIR, THIS TREATMENT COUNSELOR SET HER UP FOR BREAKFAST THAT WAS JUST BROUGHT IN. STUDENT WILL TAKE CARE OF MOST OF PATIENTS MORNING NEEDS. CALL LIGHT IN REACH
--- NOTE | 2017-11-14 09:01 | NUR ---
ATTEMPTED TO GET STANDING WEIGHT PER YOSI, RX REQUEST. PT UNABLE TO STAND TO GET ACCURATE WEIGHT. WILL REATTEMPT WITH PHYSICAL THEARPY. SN IN ROOM TO CHANGE BEDDING AND GIVE MEDS.
--- NOTE | 2017-11-14 09:15 | NUR ---
Student nurse administered all 0900 medications except Keflex 500mg capsule due to contraindication for medication being crushed for administration. Student nurse contacted pharmacist to approve medication being crushed or changed to an oral suspension. Awaiting pharmacist's response at this time.
--- NOTE | 2017-11-14 09:42 | NUR ---
STUDENT NURSE PERFORMED FOCUS SYSTEM PATIENT ASSESSMENT. VITALS AND I/Os CHARTED. PATIENT SITTING UP IN CHAIR VISITING WITH SON. PATIENT PREPARING TO TAKE A SHOWER.
--- NOTE | 2017-11-14 10:31 | NUR ---
Student nurse administered the Keflex 500 mg capsule, crushed with applesauce. Patient was assisted to shower by OT and student nurse. Patient tolerated ambulation well, although remains a 2 person assist. Patient responded well to showering and changing into familiar clothing and performing ADLs. Patient is sitting up in her chair watching TV. She has no complaints at this time. Bedside table, phone, and call light are within reach.
--- NOTE | 2017-11-14 11:38 | NUR ---
Student nurse spoke with patient about her previous mood status and the statement made by the patient that she felt she was "going to today." Patient has since then showered, eaten, and spent time with family, and now states that she "cannot wait to sit outside in the sun with her friends." Patient seems to be more physically and mentally involved with progressive care and rehabilitation.
--- NOTE | 2017-11-14 11:40 | NUR ---
PT PARTICIPATING IN SPEECH THERAPY HELEN.
--- NOTE | 2017-11-14 12:01 | NUR ---
Student nurse performed focused patient assessment. Patient is sitting up in chair, eating lunch and watching TV. Patient has no complaints and is not showing any signs of distress at this time. Patient states "I am less scared than I was yesterday." Bedside table and call light are within reach.
--- NOTE | 2017-11-14 13:15 | NUR ---
PT HAS MULTIPLE FRIENDS IN ROOM.
--- NOTE | 2017-11-14 13:27 | NUR ---
PT OUT WITH Koki IN [facility]. BIG SMILE, SHE SAID TALA. I ASKED HER IF SHE WAS READY FOR A BIG WORKOUT, SHE STATED, "ELVIS DOESN'T GIVE YOU A CHOICE", SHE SAID WITH A SMILE. I ENCOURAGED HER AND EXTENDED A BLESSING, SHE SAID SHE WILL NEED IT. WILL CONTINUE TO FOLLOW NEEDED
--- NOTE | 2017-11-14 13:32 | NUR ---
PATIENT UP IN CHAIR, VISITORS IN ROOM. VITALS AND I/OS CHARTED. CALL LIGHT IN REACH NO OTHER NEEDS AT THIS TIME
--- NOTE | 2017-11-14 15:09 | NUR ---
[facility] FAMILY WAS IN ROOM. PT IS FIXATED ON HER WHEELCHAIR, WANTING IT SO SHE CAN WHEEL AROUND HER ROOM AND "GO LOOK IN THE CLOSET AND SUCH". PT STATED HER SON WAS ENROUTE TO GET THE WHEELCHAIR. PT'S SON WAS DESCRIBING HER ROOM AT [facility] AND DID NOT APPEAR TO BE GETTING HER CHAIR. PT WAS ABLE TO BE DISTRACTED BY WORKING ON A CROSSWORD PUZZLE.
--- NOTE | 2017-11-14 17:41 | NUR ---
PT UP TO CHAIR MOST OF THE DAY, TOLERATED WELL. PT HAD MULTIPLE FRIENDS AND FAMILY VISITING. PT REPORTED NO NEW PAIN. PT FIXATED ON HER WHEELCHAIR, WANTING HER SON TO BRING IT IN. PT EASILY DISTRACTED.
--- NOTE | 2017-11-14 18:00 | NUR ---
THE NURSE AND I TRANSFERED HER FROM THE CHAIR TO HER WHEELCHAIR TOOK HER INTO THE BATHROOM AND TRANSFERED HER FROM HER WHEELCHAIR TOO THE BSC.
--- NOTE | 2017-11-14 18:34 | NUR ---
PATIENT IS NOW IN HER BED SLEEPING.
--- NOTE | 2017-11-14 19:17 | NUR ---
GOT PATIENT A WARM BLANKET.
--- NOTE | 2017-11-14 20:00 | NUR ---
RECEIVED REPORT AT 1900, FOUND PT IN BED SLEEPING.
--- NOTE | 2017-11-14 22:09 | NUR ---
ENTERED PT ROOM AGAIN AT 2030. PT STATED THAT SHE WAS NOT FEELING WELL. PT STATED THAT SHE FELT LIKE SHE WAS DYING. PT STATED THAT SHE FELT COLD ALLOVER. A WARM BLANKET WAS PROVIDED AND V/S WERE TAKEN. V/S WERE WDL EXCEPT HER BP WHICH WAS MANNUALLY TAKEN 180/103. MD BLAKE WAS CALLED AND SCHEDULED BP MEDS WERE GIVEN. BP WAS TAKEN AGAIN MANNUALLY AT 2205. IT WAS 190/84. MD BLAKE WILL BE CALLED AT THIS TIME.
--- NOTE | 2017-11-14 22:20 | NUR ---
MD BLAKE GAVE AN ORDER FOR ONE TIME DOSE OF LABETOLO 100MG. THE SCHEDULED LABETOLOL DOSE WAS INCREASED TO 200MH BID. PT IS RESTING/SLEEPING OFF AND ON. PT STILL FEELS THE SAME OVERALL. WILL CONTINUE TO MONITOR.
--- NOTE | 2017-11-14 23:26 | NUR ---
BP IS WDL AT SBP 156. PT HAS PAIN 7/10. 10 MG OF OXY PRN WAS GIVEN. WILL CONTINUE TO MONITOR.
--- NOTE | 2017-11-15 02:00 | NUR ---
PT IS AWAKE AT THIS TIME. PT HAD INCONNINET EPISODE. PT STATED THAT SHE IS FEELING BETTER OVERALL AT THIS TIME.
--- NOTE | 2017-11-15 04:00 | NUR ---
PT IS SLEEPING AT THIS TIME. NO NEW CONCERNS.
--- NOTE | 2017-11-15 05:28 | NUR ---
AT START OF SHIFT PT STATED THAT SHE FELT LIKE SHE WAS DYING. HER SBP AT AROUND 2030 WAS 180 MANNUALLY. MD BLAKE WAS CALLED AND SCHEDULED BP MEDS WERE GIVEN. BP WAS TAKEN APPROX ONE HOUR LATER AND SBP AT THAT TIME MANUALLY TAKEN WAS 190. MD BLAKE WAS CALLED AGAIN. AN ORDER WAS RECEIVED FOR A 100MG ONCE ORDER OF LABETOLOL. THE SCHEDULED LABETOLO ORDER WAS ALSO CHANGED. AND HOUR AFTER THAT HER SBP WAS 156. PT SINCE THEN HAS FELT MUCH BETTER AND HER THOUGHTS OF DYING HAVE SUBSIDED. PT HAS BEEN SLEEPING OFF AND ON THROUHGOUT THE NIGHT. PT NEEDS TO INCREASE PO INTAKE. OUTPUT IS ADEQUATE FOR THIS SHIFT. KNEE PAIN IS WELL CONTROLLED WITH PRN PAIN MED.
--- NOTE | 2017-11-15 07:32 | NUR ---
BEDSIDE REPORT RECEIVED FROM GEORGIE ERVIN. ALL QUESTIONS ANSWERED. PATIENT SLEEPING AT THIS TIME. WILL ALLOW SLEEP.
--- NOTE | 2017-11-15 09:08 | NUR ---
PT RESTING/SLEEPING QUIETLY IN BED NOW. APPETITE POOR FOR BREAKFAST. ROOM CLEANED/TIDIED.
--- NOTE | 2017-11-15 10:24 | NUR ---
PHYSICAL THERAPIST ASSISTED PATIENT TO BSC AND THEN TO CHAIR. UP IN RECLINER VISITING WITH FAMILY NOW. PT EXPECTS 4 MORE DAYS OF PHYSICAL THERAPY TO GET STRONGER.
--- NOTE | 2017-11-15 13:07 | NUR ---
AT NURSES DESK, THIS RN HEARD PT CALL FOR HELP. UPON ENTERING ROOM, PT REQUESTED THAT RN OPEN THE DOOR SO SHE "COULD SEE LIFE OUTSIDE" AND REPOSITION. HAN RN AND MANUEL RN ADJUSTED POSITION. PT STATED THAT WAS MUCH BETTER. ALL BELONGINGS IN REACH, CALL LIGHT AT HAND.
--- NOTE | 2017-11-15 13:37 | NUR ---
pt is sitting up in chair resting safely with call light in reach. pt is resting with eyes closed, respirations even.
--- NOTE | 2017-11-15 18:11 | NUR ---
THIS HAND THERMAL CUTTER AND SHO MICHAEL ASSISTED PATIENT ONTO THE BEDSIDE COMMODE. 2 PERSON STAND AND PIVOT. PATIENT NOW SITTING UP IN CHAIR. WARM BLANKETS. CALL LIGHT WIITHIN REACH. NO OTHER NEEDS AT THIS TIME.
--- NOTE | 2017-11-15 18:38 | NUR ---
PT UP TO CHAIR MOST OF DAY. PT STATED SHE IS IN MORE PAIN TODAY, TYLENOL X1 AND OXY X1, WHICH WAS EFFECTIVE. PT STAND/PIVOT TO BSC. VOIDING WELL. PT EATING BETTER THAN PREVIOUS SHIFTS. PT PARTCIPATED IN THERAPY ORDERED. PT REPORTS FEELING BETTER ABOUT ABLITY TO STAND, THOUGH NOT ABLE TO STAND INDEPENDENTLY AT THIS TIME.
--- NOTE | 2017-11-15 19:05 | NUR ---
SHIFT REPORT RECEIVED. PATIENT RESTING IN RECLINER. DENIES NEEDS AT THIS TIME. CALL LIGHT IN REACH.
--- NOTE | 2017-11-15 21:30 | NUR ---
EVENING MEDS GIVEN PER ORDER. ALL PILLS CRUSHED AND PUT INTO APPLE SAUCE. PATIENT ABLE TO TOLERATE THIS WELL. PATIENT IS AAOX3, REPORTS FEELING IN MUCH BETTER SPIRITS THAN PREVIOUSLY. REQUEST CURTAIN AND DOOR BE LEFT OPEN TO DECREASE FEELING OF ISOLATION. LUNG SOUNDS ARE CLEAR. ABD SOFT AND NONTENDER. PATIENT REPORTS HAVING A BM TWO DAYS AGO AND REFUSED MIRALAX. CHART REFLECTS PATIENT HAS NOT HAD BM FOR THREE DAYS. EDUCATED PATIENT ON PROPER BOWEL CARE. APPETITE HAS IMPROVED SLIGHTLY, TOLERATING GROUND DIET WITH THIN LIQUIDS. PATIENT RETURNED TO BED RECENTLY FROM BEING IN THE RECLINER, WILL ASSESS REPOSITIONING IN 2 HOURS. PATIENT DENIES TOILETING NEEDS. ATTENDS DRY. CALL LIGHT IN REACH. NO OTHER NEEDS AT THIS TIME. REPORTS PAIN WNL.
--- NOTE | 2017-11-15 22:15 | NUR ---
PATIENT RESTING IN BED. REQUEST ASSISTANCE TURNING OFF TV FOR THE NIGHT. DENIED TOILETING NEEDS AND MOTORCYCLE DELIVERER SEPTEMBER CHECKED ATTENDS WHICH WERE DRY. CALL LIGHT IN REACH.
--- NOTE | 2017-11-16 02:00 | NUR ---
woke patient to assess toileting needs. Patient's attend was slightly wet. assisted patient up to BS, 2PA stand pivot. Patient was able to void. New attends in place. assisted patient back to bed. Patient able to turn herself to left side. Positioned with pillows. call light in reach. Warm blanket provided.
--- NOTE | 2017-11-16 04:51 | NUR ---
PATIENT SLEPT WELL THROUGHOUT SHIFT. ORIENTED X4. NO PAIN REPORTED. UP TO BSC 2PA STAND PIVOT. PATIENT INCONTINET AT TIMES, REQUIRES FREQUENT TOILETING ASSESSMENTS. APPETITE IMPROVED, DYSPHAGIA DIET. THIN LIQUIDS. PILLS CRUSHED IN APPLE SAUCE. REPOSITION Q2H. MOOD HAS BEEN SOMEWHAT DEPRESSED. LEAVING CURTAIN OPEN RELIEVES SOME STRESS.
--- NOTE | 2017-11-16 05:57 | NUR ---
IN ROOM TO ADMINISTER MEDICATIONS, PT DENIES FURTHER NEEDS.
--- NOTE | 2017-11-16 06:46 | NUR ---
PATIENT ASSISTED UP TO BSC AND RECLINER WITH 2PA STAND PIVOT FROM ENGINEERING PRODUCTION WORKER SEPTEMBER & ELLE.
--- NOTE | 2017-11-16 06:56 | NUR ---
ELLE THE ETL PROGRAMMER AND I HELPED PT TO THE BSC AND TO THE CHAIR. BEDSIDE TABLE AND CALL LIGHT WITHIN REACH.
--- NOTE | 2017-11-16 07:23 | NUR ---
RECIEVED BEDSIDE REPORT FROM ARCADIO HUTCHINSON. PT AWAKE AND ALERT IN CHAIR. PT SLIGHTLY CONFUSED, BUT PLESANT. PT VOIDING, NO BM CHARTED.
--- NOTE | 2017-11-16 08:18 | NUR ---
PATIENT SITTING UP IN CHAIR EATING BREAKFAST. CALL LIGHT WITHIN REACH. WARM BLANKET. NO OTHER NEEDS AT THIS TIME.
--- NOTE | 2017-11-16 09:40 | NUR ---
VITALS AND I&Os DONE. CALL LIGHT WITHIN REACH. NO OTHER NEEDS AT THIS TIME.
--- NOTE | 2017-11-16 12:50 | NUR ---
THIS CHIEF NURSING OFFICER AND ARCADIO DAVIS ASSISTED PATIENT FROM THE CHAIR TO THE BEDSIDE COMMODE. 2PA WITH FWW. PATIENT IS NOW RELAXING IN BED. THIS CHIEF NURSING OFFICER ASSISTED PATIENT WITH BEDBATH. PATIENT HAS NOT VOIDED SINCE 0600 AND HAS NOT HAD WET ATTENDS. RN NOTIFIED. CALL LIGHT WITHIN REACH. NO OTHER NEEDS AT THIS TIME.
--- NOTE | 2017-11-16 13:16 | NUR ---
ELIO PENA REPORTED TO THE RN THAT PT HAD NOT VOIDED AND HAS HAD POOR ORAL INTAKE. ELIO PENA BLADDER SCANNED PT SHOWING MINIMAL AMT OF URINE IN BLADDER. THIS RN ATTEMPTED BLADDER SCAN WITH MINIMAL IMPROVEMENT. ENCOURAGED PT TO DRINK LOTS OF WATER AND JUICE. ADVISED DR BLAKE OF LOW URINE OUTPUT AND POOR INTAKE. DR BLAKE ADVISED TO MONITOR AND ENCOURAGE FLUIDS.
--- NOTE | 2017-11-16 14:51 | NUR ---
PATIENT SITTING UP IN BED. CALL LIGHT WITHIN REACH.
--- NOTE | 2017-11-16 17:43 | NUR ---
PT REPORTS LESS PAIN THIS SHIFT. UP TO CHAIR. ENJOYED FAMILY VISITS. INCREASED APITITE. MINIMAL URINE OUTPUT, MD AWARE, CONTINUE TO MONITOR AND ENCOURAGE FLUIDS. PT DOES NOT LIKE WATER, BUT WILL DRINK JUICE. NO BM. WORKED WITH PHYSICAL THERAPY, TOOK A FEW STEPS AND INCREASED STANDING TIME. 1 PERSON ASSIST TO BSC, OTHERWISE HEAVY 2 PERSON ASSIST. REQUIRES PILLS CRUSHED IN APPLESAUCE.
--- NOTE | 2017-11-16 18:52 | NUR ---
THIS PRIMING POWDER PREMIX BLENDER AND ARCADIO SHORT ASSISTED PATIENT FROM THE BED TO THE BEDSIDE COMMODE. 2PA WITH FWW. PATIENT IS NOW SITTING UP IN CHAIR. CLEAN ATTENDS ON. CALL LIGHT WITHIN REACH. NO OTHER NEEDS AT THIS TIME
--- NOTE | 2017-11-16 19:10 | NUR ---
BEDSIDE REPORT RECEIVED FROM ARCADIO SHORT. PT AWAKE, SITTING UP IN CHAIR, CALL LIGHT IN LAP. PT DRINKING WATER, ENCOURAGED PO INTAKE. NO REQUESTS AT THIS TIME.
--- NOTE | 2017-11-16 20:05 | NUR ---
PT REPORTS PAIN IS "OKAY", RATES PAIN 4/10 IN BACK AND RIGHT KNEE. PRN TYLENOL AND PRN ASPERCREAM ADMINISTERED. CSM INTACT BUE, BLE. PT STATES ABSENT SENSATION BILATERALLY IN SHINS. MEDICATIONS ADMINISTERED CRUSHED IN PUDDING. LUNGS CLEAR THROUGHOUT ALL LOBES. BOWEL TONES ACTIVE X 4. GENERALIZED WEAKNESS NOTED. PT SITTING UP IN CHAIR. PERSONAL SUPPLIES AND CALL LIGHT IN REACH.
--- NOTE | 2017-11-16 22:27 | NUR ---
CHECKED ON PT, PT AWAKE, STATES PAIN IS 5/10, "GETTING WORSE". PRN OXYCODONE ADMINISTERED AT THIS TIME. LIGHTS OFF IN PT ROOM, CALL LIGHT IN REACH.
--- NOTE | 2017-11-17 | NUR ---
CALL LIGHT ANSWERED, 2PA TO BSC FOR VOID. PT INCONTIENT OF URINE IN ATTENDS. ATTENDS CHANGED. PT UNABLE TO VOID IN COMMODE. 2PA BACK TO BED, PT VERY WEAK ON FEET, REQUIRING MAX ASSIST TO PIVOT. ASSISTED TO REPOSITION IN BED, NO ADDL REQUESTS, CALL LIGHT IN REACH.
--- NOTE | 2017-11-17 01:43 | NUR ---
CALL LIGHT ANSWERED, 2PA TO BSC FOR VOID, INCONTINENCE IN ATTENDS, ATTENDS CHANGED, 2PA BACK TO BED. CALL LIGHT AND PERSONAL SUPPLIES IN REACH, LIGHTS OFF IN ROOM.
--- NOTE | 2017-11-17 02:17 | NUR ---
WITH THE HELP OF ARCADIO WYATT WE GOT HER TO THE BSC AND BACK TO BED. BEDSIDE TABLE AND CALL LIGHT WITHIN REACH.
--- NOTE | 2017-11-17 04:35 | NUR ---
2PA FROM BSC BACK TO BED, SMALL HARD BM NOTED. PT REQUESTING TO SLEEP. CALL LIGHT IN REACH.
--- NOTE | 2017-11-17 06:20 | NUR ---
2PA TO PIVOT TO BSC FOR VOIDS, INCONTINENT OF URINE IN ATTENDS. PT USING CALL LIGHT APPROPRIATELY. NO IV ACCESS. PRN OXYCODONE, TYLENOL AND ASPERCREAM FOR PAIN. ORIENTED X 3. PILLS CRUSHED IN PUDDING.
--- NOTE | 2017-11-17 08:19 | NUR ---
PT HAD LARGE BM FORMED. UP TO RECLINER TO EAT BREAKFAST AT THIS TIME.
--- NOTE | 2017-11-17 08:49 | NUR ---
PT AWAKE IN BED. TOOK PT MICHELE REYES
--- NOTE | 2017-11-17 12:56 | NUR ---
PT SITTING UP IN BED, BEGINNING TO EAT LUNCH. SHE SAID WHEN THEY BROUGHT IT SHE WAS ASLEEP. SHE SEEMED EXCITED TO BEGIN EATING-ALSO EXCITED THAT SHE DIDN'T HAVE TO COOK OR WASH THE DISHES! STILL HAS HER SENSE OF HUMOR. PT HAS HAD A VERY BUSY MORNING WITH P.T. AND VISITORS. SHE IS VERY PLEASANT, AND SEEMS TO ENJOY COMPANY. I EXTENDED A BLESSING AND LET HER EAT, WILL CONTINUE TO FOLLOW NEEDED
--- NOTE | 2017-11-17 15:14 | NUR ---
PT UP TO VOID TWO PERSON TO PIVOT, PT NOW SITTING UP IN RECLINER. SHE REPORTS NO PAIN AT THIS TIME.
--- NOTE | 2017-11-17 15:53 | NUR ---
HELPED PT TO THE BR. PICKED UP ROOM.
--- NOTE | 2017-11-17 17:33 | NUR ---
PT SITTING UP IN RECLINER EATING DINNER VISITING WITH HER DAUGHTER.
--- NOTE | 2017-11-17 18:22 | NUR ---
PT HAS BEEN UP IN CHAIR FOR MEALS, WORKED WITH PHYSICAL THERAPY WAS OUT IN HALLS IN WHEELCHAIR. GOOD APPETITE, IMPROVED URINE OUT TODAY. REQUESTED PAIN COVERAGE ONCE TODAY FOR BACK PAIN. MULTIPLE LARGE BM TODAY.
--- NOTE | 2017-11-17 19:18 | NUR ---
BEDSIDE REPORT RECEIVED FROM ARCADIO PALENCIA. PT SITTING UP IN CHAIR, ON 1L OXYGEN BY MERRY. IV SITES SALINE LOCKED. CALL LIGHT IN REACH. DOOR SHUT PER PT REQUEST, NO ADDL REQUESTS.
--- NOTE | 2017-11-17 19:28 | NUR ---
IN ROOM FOR REPORT, PT IS AWAKE IN BED. SHE STATES SHE WOULD LIKE HER PAIN PILL AT BEDTIME. PT DENIES FURTHER NEEDS. CALL LIGHT IS WITHIN REACH.
--- NOTE | 2017-11-17 20:16 | NUR ---
PT IS AWAKE IN BED, WILL RETURN TO GIVE MEDICATIONS LATER. SHE IS A&O BUT FORGETFUL AT TIMES. SHE HAS SOME BACK PAIN BUT IS TOLERABLE AT THIS TIME.
--- NOTE | 2017-11-17 21:25 | NUR ---
ADMINISTERED EVENING MEDICATIONS AND HELPED HER TO THE BEDSIDE COMMODE. HELPED PT BACK TO BED, SHE DENIES FURTHER NEEDS AT THIS TIME.
--- NOTE | 2017-11-17 23:30 | NUR ---
PT IS RESTING WITH EYES CLOSED, RESPIRATIONS ARE EVEN AND NONLABORED.CALL LIGHT IS WITHIN REACH.
--- NOTE | 2017-11-18 01:32 | NUR ---
PT IS RESTING WITH EYES CLOSED, RESPIRATIONS ARE EVEN AND NONLABORED. CALL LIGHT IS WITHIN REACH.
--- NOTE | 2017-11-18 03:15 | NUR ---
PT IS RESTING WITH EYES CLOSED, RESPIRATIONS ARE EVEN AND NONLABORED. CALL LIGHT IS WITHIN REACH.
--- NOTE | 2017-11-18 06:14 | NUR ---
ADMINISTERED MEDICATIONS AND HELPED PT TO COMMODE AND BACK TO BED.
--- NOTE | 2017-11-18 07:00 | NUR ---
PT RSTING IN BED EYES CLOSED RR EVEN, NO DISTRESS NOTED. PT APPEARS TO BE SLEEPING
--- NOTE | 2017-11-18 10:27 | NUR ---
PT RESTING IN RECLINER AFTER WORKING WITH PHYSICAL THERAPY. PT REPORTS PAIN IN BACK AND GENERALIZED REQUESTS PAIN COVERAGE. PT ADMINISTERED 2 TABS 5MG OXYCODONE AT THIS TIME AND PROVIDED A WARM BLANKET
--- NOTE | 2017-11-18 13:33 | NUR ---
PT SITTING IN CHAIR, WRAPPED IN WARM BLANKET. 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 PT WAS A TEACHER WELL. PT MENTIONED THAT SHE WAS HAVING TROUBLE WAKING UP THIS MORNING AND COULD NOT GET WARM UNTIL SHE PUT ON HER OWN ROBE. P.T. CAME IN TO WORK WITH HER. EXTENDED A BLESSING, WILL FOLLOW NEEDED
--- NOTE | 2017-11-18 14:44 | NUR ---
PT RESTING IN BED NO DISTRESS NOTED.
--- NOTE | 2017-11-18 15:12 | NUR ---
PT UP TO BEDSIDE COMMODE. PT HAD SMALL BM. URINE INCONTINENCE IN BRIEFS. PT REPORTS NO DISCOMFORT OR NAUSEA. PT ALERT AND ORIENTED
[2017-11-18] MEDS ORDERED: XARELTO10 MG PO (16:15)
[2017-11-18] MEDS ORDERED: LABETALOL HCL200 MG PO (16:16)
[2017-11-18] MEDS ORDERED: CEPHALEXIN500 MG PO (16:18)
--- NOTE | 2017-11-18 17:16 | NUR ---
PT HAS BEEN UP IN RECLINER FOR MEALS. SHE HAS CONSUMED APPROX. 50% OF MEALS. SHE HAS REQUESTED PAIN MEDICATION ONCE THIS SHIFT. SHE HAS BEEN INCONT. OF URINE, ONE SMALL BM THIS SHIFT. 1-2 PERSON ASSIST TO PIVOT TO COMMODE. PT WORKED WITH PHYSICAL THERAPY AND OCCUPATIONAL THERAPY TODAY. SHE HAS BEEN ALERT, ORIENTED AND PLEASANT THIS SHIFT. PLAN TO DISCHARGE TOMORROW TO [facility]
--- NOTE | 2017-11-18 19:20 | NUR ---
BEDSIDE REPORT RECEIVED FROM ARCADIO DAVIS. PT LYING IN BED AT THIS TIME, PERSONAL SUPPLIES, AND PO FLUIDS IN REACH. PT HAS NO REQUESTS AT THIS TIME. CALL LIGHT IN REACH.
--- NOTE | 2017-11-18 20:24 | NUR ---
PT ASSESSMENT AND VITALS COMPLETE. PO MEDICATIONS ADMINISTERED CRUSHED IN APPLE SAUCE. PRN ASPERCREAM AND PRN OXYCODONE ADMINISTERED FOR 5/10 "INCREASING PAIN". LUNGS CLEAR THROUGHOUT ALL LOBES. BOWEL TONES ACTIVE X 4, ABD SOFT. NO EDEMA NOTED. PT GIVEN CRANBERRY JUICE. CALL LIGHT IN REACH. WILL CONTINUE TO MONITOR.
--- NOTE | 2017-11-18 23:04 | NUR ---
CHECKED ON PT, APPEARS TO BE SLEEPING, EYES CLOSED, BREATHING NON-LABORED, EQUAL CHEST RISE BILATERALLY. LIGHTS OFF IN ROOM.
--- NOTE | 2017-11-19 01:30 | NUR ---
SHO TEJADA AND I HELPED PATIENT USE THE COMMODED WITH WALKER AND BACK TO BED. CALL LIGHT WITHIN REACH. NO OTHER NEEDS AT THE [facility].
--- NOTE | 2017-11-19 02:07 | NUR ---
PT AWAKE, SITTING UP IN BED WATCHING TV. PT GIVEN ICE WATER AT THIS TIME. STATES UNABLE TO SLEEP, "RESTLESS". PRN ASPERCREME, DENIES PAIN. PT OFFERED WARM BLANKET, CURTAIN OPEN PER PT REQUEST. CALL LIGHT IN REACH.
--- NOTE | 2017-11-19 04:36 | NUR ---
CHECKED ON PT, APPEARS TO BE SLEEPING, LYING ON RIGHT SIDE, HOB ELEVATED, EYES CLOSED, BREATHING NON-LABORED. LIGHTS OFF IN ROOM.
--- NOTE | 2017-11-19 06:38 | NUR ---
PT IN BED THROUGHOUT SHIFT, USING CALL LIGHT APPROPRIATELY FOR 2PA WITH FWW TO BSC FOR VOIDS, INCONTIENT OF URINE IN ATTENDS. PRN OXYCODONE AND ASPERCREME FOR PAIN. PO FLUIDS ENCOURAGED. MEDICATIONS CRUSHED IN APPLESAUCE. PLAN TO DISCHARGE TODAY.
--- NOTE | 2017-11-19 07:46 | NUR ---
PATIENT SLEEPING SOUNDLY DURING BEDSIDE SHIFT REPORT. SNORING AT TIMES. WHITE BOARD UPDATED. WILL ALLOW PATIENT TO SLEEP NOW.
--- NOTE | 2017-11-19 08:42 | NUR ---
PATIENT CALLED TO GO TO BATHROOM. 2PA WITH FWW TO BSC. INCONTINENT VOID. CHANGED ATTENDS. PATIENT UP TO RECLINER NOW EATING BREAKFAST. WILL ADMINISTER MORNING MEDICATIONS WHEN BREAKFAST FINISHED.
--- NOTE | 2017-11-19 13:15 | NUR ---
PT WAS SITTING IN CHAIR, WORKING ON PERSONAL HYGIENE. SHE WELCOMED ME IN, CONTINUED TO BRUSH HER TEETH. PT MENTIONED THAT SHE IS HEADED BACK TO [facility]. THANKED ME FOR COMING BY AND REQUESTED PRAYER NOW, BUT NOT OUT LOUD. WILL FOLLOW NEEDED
== END 2017-11-19 10:55 | disposition home health service (06) | DRG 556 ==
LOC: MS 11:20
PROVIDERS: ADMIT Internal Medicine
DX: M62.81 Muscle weakness (generalized) (principal); N30.00 Acute cystitis without hematuria; R13.12 Dysphagia, oropharyngeal phase; I11.0 Hypertensive heart disease with heart failure; I50.9 Heart failure, unspecified; I48.0 Paroxysmal atrial fibrillation; E03.9 Hypothyroidism, unspecified; K21.9 Gastro-esophageal reflux disease without esophagitis; F39 Unspecified mood [affective] disorder; G89.4 Chronic pain syndrome; M79.7 Fibromyalgia; G62.9 Polyneuropathy, unspecified; B96.1 Klebsiella pneumoniae [K. pneumoniae] as the cause of diseases classified elsewhere; F17.210 Nicotine dependence, cigarettes, uncomplicated; Z99.3 Dependence on wheelchair; Z66 Do not resuscitate; Z79.899 Other long term (current) drug therapy; Z79.01 Long term (current) use of anticoagulants; Z87.440 Personal history of urinary (tract) infections
CPT/HCPCS: 51798; 92526; 92610; 97110; 97162; 97166; 97530; 97535

== ENCOUNTER 2018-01-22 14:42 | Emergency (ER) | payer MEDICARE, OTHER ==
[~2018-01-22] VITALS: Ht 160 cm; Wt 49.9 kg
[~2018-01-22 14:42] MED LIST changes: +LABETALOL HCL200 MG PO
[2018-01-22] MEDS ORDERED: ZOFRAN ODT4 MG PO (19:19)
== END 2018-01-22 19:51 | disposition home or self-care (01) ==
LOC: ED 14:42
PROC: 0T9B70Z Drainage of Bladder with Drainage Device, Via Natural or Artificial Opening (ICD-10-PCS; principal; 2018-01-22)
DX: R11.2 Nausea with vomiting, unspecified (principal); I10 Essential (primary) hypertension; Z88.5 Allergy status to narcotic agent; Z79.899 Other long term (current) drug therapy
CPT/HCPCS: 51701; 76770; 80053; 81001; 85025; 99284